=== PATIENT | male | born 1985 | race Caucasian/White ===

== ENCOUNTER 2022-09-06 18:54 | Emergency (ER) | payer OTHER, BC ==
[2022-09-06] MEDS ORDERED: HYDROcodone/Acetaminophen 10/325 mg Tablet ONE (20:35)
== END 2022-09-06 20:41 | disposition home or self-care (01) ==
LOC: ERS 18:54
DX: S30.1XXA Contusion of abdominal wall, initial encounter (principal); I10 Essential (primary) hypertension; Z79.899 Other long term (current) drug therapy; W01.10XA Fall on same level from slipping, tripping and stumbling with subsequent striking against unspecified object, initial encounter
CPT/HCPCS: 76881